=== PATIENT | male | born 1990 | race Caucasian/White ===

== ENCOUNTER 2018-04-25 13:51 | Emergency (ER) | payer SELFPAY ==
[~2018-04-25] VITALS: Ht 162.6 cm; Wt 52.3 kg
[~2018-04-25 13:51] MED LIST: NO HOME MEDICATIONS
[2018-04-25 13:59] VITALS: BP 131/77; PULSE 85; TEMP 98.8
[2018-04-25] MEDS ORDERED: AMOXICILLIN875 MG PO (14:57)
[2018-04-25] MEDS ORDERED: NORCO 325 MG-51 TAB PO (14:57)
== END 2018-04-25 15:14 | disposition home or self-care (01) ==
LOC: COL.ER 13:51
DX: K02.9 Dental caries, unspecified (principal); K04.7 Periapical abscess without sinus; F17.210 Nicotine dependence, cigarettes, uncomplicated
CPT/HCPCS: J1885

== ENCOUNTER 2018-07-09 20:32 | Emergency (ER) | payer SELFPAY ==
[~2018-07-09] VITALS: Ht 162.6 cm; Wt 52.3 kg
[~2018-07-09 20:32] MED LIST changes: +AMOXICILLIN875 MG PO; +NORCO 325 MG-51 TAB PO
[2018-07-09 20:48] VITALS: BP 118/65; PULSE 76; TEMP 99
== END 2018-07-09 21:30 | disposition left against medical advice (07) ==
LOC: COL.ER 20:32
DX: R10.12 Left upper quadrant pain (principal)